=== PATIENT | male | born 1970 | race Caucasian/White ===

== ENCOUNTER 2019-09-13 21:28 | Emergency (ER) | payer OTHER ==
[~2019-09-13] VITALS: Ht 185.4 cm; Wt 76.0 kg
[2019-09-13] MEDS ORDERED: MAGNESIUM CITRATE 300ML SOLUTION PO ONE (23:15)
[2019-09-13 23:46] VITALS: BP 120/67
== END 2019-09-13 23:47 | disposition home or self-care (01) ==
LOC: ER 21:28
DX: K59.00 Constipation, unspecified (principal)
CPT/HCPCS: 99281